=== PATIENT | female | born 1960 | race Caucasian/White ===

== ENCOUNTER 2020-02-09 14:41 | Inpatient (IN) | payer OTHER ==
--- NOTE | 2020-02-09 15:07 | BHS.RME ---
Substance Use & Tx History - Substance Use History Alcohol Substance amount: 3 bottles of wine Frequency of use: Daily Substance route: Oral Date of Last Use: 02/09/20 Physical/Psych/Mental Status - Behavior General Behavior: Increased activity (restlessness, agitation) Eye Contact: Normal - Cooperativeness Cooperativeness: Cooperative - Thinking Thought Processes: Tight Thought content: Future oriented - Physical Health Problems Is patient presently having any pain?: No Does patient presently have any injuries (include location): No Does patient currently have a fever: No CIWA Nausea/Vomitin-Mild Nausea/No Vomiting Muscle Tremors: 3 Anxiety: 4-Mod. Anxious/Guarded Agitation: 0-Normal Activity Paroxysmal Sweats: No Perspiration Orientation: 0-Oriented Tacttile Disturbances: 0-None Auditory Disturbances: 0-None Visual Disturbances: 0-None Headache: 0-None Present CIWA-Ar Total Score: 8
[2020-02-09 18:39] VITALS: BMI 22.3
--- NOTE | 2020-02-09 18:51 | HP ---
CIWA Score Nausea/Vomitin-Mild Nausea/No Vomiting Muscle Tremors: 6 Anxiety: 4-Mod. Anxious/Guarded Agitation: 3 Paroxysmal Sweats: 3 (Increased facial moisture) Orientation: 0-Oriented Tacttile Disturbances: 0-None Auditory Disturbances: 0-None Visual Disturbances: 0-None Headache: 0-None Present CIWA-Ar Total Score: 17 - Admission Criteria OASAS Guidelines: Admission for Medically Managed Detox: Requires at least one of the followin. CIWA greater than 12 2. Seizures within the past 24 hours 3. Delirium tremens within the past 24 hours 4. Hallucinations within the past 24 hours 5. Acute intervention needed for co occurring medical disorder 6. Acute intervention needed for co occurring psychiatric disorder 7. Severe withdrawal that cannot be handled at a lower level of care (continued vomiting, continued diarrhea, abnormal vital signs) requiring intravenous medication and/or fluids 8. Patient presents the following: CIWA greater than 12, Acute intervention needed for co-occurring med or psych disorder (DAMIR 0.232 to 0.140) Admission Criteria Met: Admission criteria met Admission ROS [facility] - [facility] Chief Complaint: "Here because my drinking is out of control. The long-term where I reside asked me to come in for detox" Allergies/Adverse Reactions: Allergies Allergy/AdvReac Type Severity Reaction Status Date / Time No Known Allergies Allergy Verified 02/09/20 19:45 History of Present Illness: 59 yo f w/ alcohol intoxication and withdrawal symptoms seeking detox. DAMIR: 0.232 to 0.140 UTox: Neg Denies seizures or overdoses. Hx: Blackouts Abnormal EKG on admission. Denies hx chest pain or LA. Will order troponin level in a.m. Alcohol use began at age 6 then stopped and restarted at age 46. Currently drinks 3 bottles wine/day. Denies drugs or nicotine use. PMHx: Denies MHHx: Depression. Denies thoughts of harming self or others. Sees a Psychiatrist. Not taking any meds SHx: Longterm. Unemployed. Denies legal issues. Search Terms: NAVI NICOLAS, 1960 Search Date: 02/09/2020 18:48:58 PM The Drug Utilization Report below displays all of the controlled substance prescriptions, if any, that your patient has filled in the last twelve months. The information displayed on this report is compiled from pharmacy submissions to the Department, and accurately reflects the information as submitted by the pharmacies. This report was requested by: Miriamguille Abraham | Reference #: [id number] There are no results for the search terms that you entered. Exam Limitations: No Limitations - Ebola screening Have you traveled outside of the country in the last 21 days: No (Denies COVID. ) Have you had contact with anyone from an Ebola affected area: No Have you been sick,other than usual withdrawal symptoms: No Do you have a fever: No - Review of Systems Constitutional: Diaphoresis, Weight Stable EENT: reports: Blurred Vision Respiratory: reports: No Symptoms reported Cardiac: reports: No Symptoms Reported GI: reports: Nausea, Vomiting : reports: No Symptoms Reported Musculoskeletal: reports: No Symptoms Reported Integumentary: reports: Rash Neuro: reports: Tremors Endocrine: reports: Increased Thirst Hematology: reports: No Symptoms Reported Psychiatric: reports: Mood/Affect Appropiate, Orientated x3, Agitated, Anxious, Depressed (Denies thoughts of harming self or others.) Patient History - PPD History Previous Implant?: Yes Documented Results: Negative w/o proof Implanted On Prior R Admission?: Yes PPD to be Administered?: Yes - Reproductive History Patient is a Female of Child Bearing Age (11 -55 yrs old): No - Smoking Cessation Smoking history: Never smoked Have you smoked in the past 12 months: No Hx Chewing Tobacco Use: No Initiated information on smoking cessation: No - Substance & Tx. History Hx Alcohol Use: Yes Hx Substance Use: No Substance Use Type: Alcohol Hx Substance Use Treatment: Yes (detox, rehab) - Substances abused Alcohol Substance route: Oral Frequency: Daily Amount used: 3 to 4 bottles of wine Age of first use: 6 Date of last use: 02/09/20 Admission Physical Exam BHS - Vital Signs Vital Signs: Vital Signs - 24 hr 02/09/20 18:35 Temperature 98.5 F Pulse Rate 84 Respiratory 18 Rate Blood Pressure 116/88 - Physical General Appearance: Yes: Alcohol on Breath, Intoxicated, Tremorous (Gross tremors), Sweating (Increased facial moisture), Anxious HEENTM: Yes: EOMI, Hearing grossly Normal, Normocephalic, Normal Voice, DESHAUN, Pharynx Normal Respiratory: Yes: Lungs Clear, Normal Breath Sounds, No Respiratory Distress Neck: Yes: No masses,lesions,Nodules, Supple Breast: Yes: Breast Exam Deferred Cardiology: Yes: Regular Rhythm, Regular Rate (HR: 92), S1, S2 Abdominal: Yes: Non Tender, Flat, Soft, Increased Bowel Sounds Genitourinary: Yes: Within Normal Limits Back: Yes: Normal Inspection Musculoskeletal: Yes: full range of Motion, Gait Steady Extremities: Yes: Normal Capillary Refill, Tremors (Gross tremors), Pedal Edema (Pedal pulses +) 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, Fully Oriented, Alert, Motor Strength 5/5, Normal Mood/Affect, Normal Response Integumentary: Yes: Normal Color, Warm, Moist (Increased facial moisture), Rash (flat reddish rash arms and chest), Other (decreased skin turgor,) - Diagnostic (1) Alcohol dependence with uncomplicated withdrawal Current Visit: Yes Status: Acute (2) Alcohol intoxication Current Visit: Yes Status: Acute Qualifiers: Complication of substance-induced condition: uncomplicated Qualified Code(s): F10.920 - Alcohol use, unspecified with intoxication, uncomplicated (3) Rash and nonspecific skin eruption Current Visit: Yes Status: Chronic Comment: Chest and arms (4) Dehydration symptoms Current Visit: Yes Status: Acute (5) Abnormal finding on EKG Current Visit: Yes Status: Acute Cleared for Admission S - Detox or Rehab [facility] Level of Care: Medically Managed Detox Regimen/Protocol: Librium Claeared for Rehab Admission: No Breathalyzer - Breathalyzer Breathalyzer: 0.232 Urine Drug Screen - Test Device Lot number: [id number] Expiration date: 01/08/22 - Control Is test valid?: Yes - Results Drug screen NEGATIVE: Yes Inpatient Rehab Admission - Rehab Decision to Admit Inpatient rehab admission?: No
[2020-02-09] MEDS ORDERED: chlordiazePOXIDE HCL 25 MG CAPSULE PO PRN (19:12)
[2020-02-09] MEDS ORDERED: BISMUTH SUBSALICYLATE 524 MG/30 ML UD PO PRN (19:12)
[2020-02-09] MEDS ORDERED: MAG HYDROX/AL HYDROX/SIMETH 30 ML UNIT-DOSE CUP PO PRN (19:12)
[2020-02-09] MEDS ORDERED: ACETAMINOPHEN 325 MG TABLET (FP) PO PRN ×2 (19:12)
[2020-02-09] MEDS ORDERED: hydrOXYzine PAMOATE 25 MG CAPSULE (FP) PO PRN (19:12)
[2020-02-09] MEDS ORDERED: MENTHOL/PHENOL 1 EACH UD MM PRN (19:12)
[2020-02-09] MEDS ORDERED: MAGNESIUM HYDROX 2400MG/30ML ORAL SUSPENSION 30 ML CUP PO PRN (19:12)
[2020-02-09] MEDS ORDERED: IBUPROFEN 400 MG TABLET (FP) PO PRN (19:12)
[2020-02-09] MEDS ORDERED: MAGNESIUM CITRATE 300 ML BOTTLE PO PRN (19:12)
[2020-02-09] MEDS ORDERED: chlordiazePOXIDE HCL 25 MG CAPSULE ONE (19:37)
[2020-02-09] MEDS ORDERED: COLLOIDAL OATMEAL 1 BAR EACH TP PRN (19:44)
[2020-02-09] MEDS ORDERED: chlordiazePOXIDE HCL 25 MG CAPSULE PO ONE (19:45)
[2020-02-09] MEDS ORDERED: ONDANSETRON *ODT* 4 MG TABLET SL ONE (19:45)
[2020-02-09] MEDS: chlordiazePOXIDE HCL 25 MG CAPSULE PO SCH (22:28)
[2020-02-09] MEDS: CLOTRIMAZOLE 1%TOPICAL SOLUTION 30 ML BOTTLE TP SCH (22:28)
[2020-02-09] MEDS: THIAMINE HCL 100 MG TABLET (FP) PO SCH (22:29)
[2020-02-09] MEDS: MELATONIN 5 MG TABLETS PO SCH (22:29)
[2020-02-10] MEDS: chlordiazePOXIDE HCL 25 MG CAPSULE PO SCH ×2 (05:43→10:28)
[2020-02-10 10:17] LABS: HEMATOCRIT 35.8 % (32.4-45.2); HEMOGLOBIN 12.5 GM/dL (10.7-15.3); MCH 39.5 pg (25.7-33.7); MCHC 34.9 g/dl (32.0-36.0); MEAN PLT VOLUME 7.9 fl (7.5-11.1); PLATELET COUNT 57 K/MM3 (134-434); RBC 3.17 M/mm3 (3.60-5.2); WHITE BLOOD COUNT 3.6 K/mm3 (4.0-10.0)
[2020-02-10 10:27] LABS: ALBUMIN 3.6 g/dl (3.4-5.0); ANION GAP 8 MMOL/L (8-16); BILIRUBIN,TOTAL 2.4 mg/dL (0.2-1); BLOOD UREA NITROGEN 13.4 mg/dL (7-18); CALCIUM 8.3 mg/dL (8.5-10.1); CHLORIDE 95 mmol/L (98-107); CO2 33 mmol/L (21-32); CREATININE 0.8 mg/dL (0.55-1.3); POTASSIUM 3.8 mmol/L (3.5-5.1); SGPT/ALT 139 U/L (13-61); SODIUM 137 mmol/L (136-145)
--- NOTE | 2020-02-10 10:27 | PN ---
S CIWA - CIWA Score Nausea/Vomitin-No Nausea/No Vomiting Muscle Tremors: 2 Anxiety: 3 Agitation: 0-Normal Activity Paroxysmal Sweats: 3 Orientation: 0-Oriented Tacttile Disturbances: 0-None Auditory Disturbances: 0-None Visual Disturbances: 0-None Headache: 2-Mild CIWA-Ar Total Score: 10 S Progress Note (SOAP) Subjective: c/o sweats, shakes, anxiety, and headache. Objective: 02/10/20 10:26 Vital Signs 02/10/20 02/10/20 06:36 08:52 Temperature 97.2 F L 96.8 F L Pulse Rate 80 86 Respiratory 18 18 Rate Blood Pressure 129/89 109/74 O2 Sat by Pulse 99 99 Oximetry (%) Laboratory Last Values WBC 3.6 K/mm3 (4.0-10.0) L 02/10/20 07:25 RBC 3.17 M/mm3 (3.60-5.2) L 02/10/20 07:25 Hgb 12.5 GM/dL (10.7-15.3) 02/10/20 07:25 Hct 35.8 % (32.4-45.2) 02/10/20 07:25 MCV 113.0 fl (80-96) H 02/10/20 07:25 MCH 39.5 pg (25.7-33.7) H 02/10/20 07:25 MCHC 34.9 g/dl (32.0-36.0) 02/10/20 07:25 RDW 16.0 % (11.6-15.6) H 02/10/20 07:25 Plt Count 57 K/MM3 (134-434) L 02/10/20 07:25 MPV 7.9 fl (7.5-11.1) 02/10/20 07:25 Sodium 137 mmol/L (136-145) 02/10/20 07:25 Potassium 3.8 mmol/L (3.5-5.1) 02/10/20 07:25 Chloride 95 mmol/L (98-107) L 02/10/20 07:25 Carbon Dioxide 33 mmol/L (21-32) H 02/10/20 07:25 Anion Gap 8 MMOL/L (8-16) 02/10/20 07:25 BUN 13.4 mg/dL (7-18) 02/10/20 07:25 Creatinine 0.8 mg/dL (0.55-1.3) 02/10/20 07:25 Est GFR (CKD-EPI)AfAm 94.19 02/10/20 07:25 Est GFR (CKD-EPI)NonAf 81.27 02/10/20 07:25 Random Glucose 93 mg/dL (74-106) 02/10/20 07:25 Calcium 8.3 mg/dL (8.5-10.1) L 02/10/20 07:25 Total Bilirubin 2.4 mg/dL (0.2-1) H 02/10/20 07:25 AST 268 U/L (15-37) H 02/10/20 07:25 ALT 139 U/L (13-61) H 02/10/20 07:25 Alkaline Phosphatase 54 U/L (45-117) 02/10/20 07:25 Troponin I < 0.02 ng/ml (0.00-0.05) 02/10/20 07:25 Troponin I Cancelled 02/10/20 07:25 Total Protein 6.4 g/dl (6.4-8.2) 02/10/20 07:25 Albumin 3.6 g/dl (3.4-5.0) 02/10/20 07:25 Syphilis Serology Non-reactive (NONREACTIVE) 02/10/20 07:25 Labs noted with elevated ALT/AST 02/10/20 14:22 Assessment: 02/10/20 10:27 AOX3, in no acute respiratory distress. Full ROM, ambulating in the unit. Withdrawal symptoms. Elevated liver enzymes. 02/10/20 10:29 Plan: Change librium protocol to ativan protocol.
[2020-02-10] MEDS: PRENATAL VITAMINS W/ FOLIC ACID TABLET (FP) PO SCH (10:28)
[2020-02-10] MEDS ORDERED: LORazepam 1 MG TABLET PO PRN (10:31)
[2020-02-10 10:33] LABS: ALK PHOS 54 U/L (45-117); GLUCOSE,RANDOM 93 mg/dL (74-106); SGOT/AST 268 U/L (15-37); TOT PROT 6.4 g/dl (6.4-8.2)
[2020-02-10] MEDS ORDERED: LORazepam 2 MG TABLET PO PRN (11:00)
--- NOTE | 2020-02-10 15:00 | EKG ---
Test Reason : Blood Pressure : / mmHG Vent. Rate : 073 BPM Atrial Rate : 073 BPM P-R Int : 142 ms QRS Dur : 072 ms QT Int : 420 ms P-R-T Axes : 043 -12 031 degrees QTc Int : 462 ms NORMAL SINUS RHYTHM POSSIBLE ANTEROLATERAL INFARCT , AGE UNDETERMINED ABNORMAL ECG NO PREVIOUS ECGS AVAILABLE Confirmed by Polo Kay ([id number]) on 02/10/2020 3:00:03 PM Referred By: Confirmed By:Polo Kay
[2020-02-10] MEDS: CLOTRIMAZOLE 1%TOPICAL SOLUTION 30 ML BOTTLE TP SCH (15:31)
[2020-02-10 17:30] LABS: EPI CELLS 6 /uL (0-25.1); HYALINE CASTS 7 /uL (0-3.1); PH,URINE 6.5 (5.0-8.0); URINE APPEARANCE CLEAR; URINE BILIRUBIN 1+ (NEGATIVE); URINE COLOR ORANGE; URINE GLUCOSE (UA) NEGATIVE (NEGATIVE); URINE KETONE 1+ (NEGATIVE); URINE LEUK ESTERASE 1+ (NEGATIVE); URINE NITRITE POSITIVE (NEGATIVE); URINE PROTEIN 2+ (NEGATIVE); URINE RBC 10 /uL (0-23.9); URINE WBC 212 /uL (0-25.8)
[2020-02-10 20:05] LABS: URINE BACTERIA 198.8 /uL (0-1359)
[2020-02-10] MEDS: MELATONIN 5 MG TABLETS PO SCH (22:33)
[2020-02-10] MEDS: CLOTRIMAZOLE 1% CREAM 15 GM TUBE TP SCH (22:33)
[2020-02-10] MEDS: THIAMINE HCL 100 MG TABLET (FP) PO SCH (22:33)
[2020-02-11] MEDS ORDERED: chlordiazePOXIDE HCL 25 MG CAPSULE PO SCH (05:00)
[2020-02-11] MEDS: LORazepam 1 MG TABLET PO SCH ×4 (05:44→22:04)
[2020-02-11] MEDS: CLOTRIMAZOLE 1% CREAM 15 GM TUBE TP SCH ×2 (10:24→22:05)
[2020-02-11] MEDS: PRENATAL VITAMINS W/ FOLIC ACID TABLET (FP) PO SCH (10:24)
--- NOTE | 2020-02-11 13:54 | PN ---
S CIWA - CIWA Score Nausea/Vomitin-Mild Nausea/No Vomiting Muscle Tremors: 1-None Visible, but [place] Anxiety: 1-Mildly Anxious Agitation: 0-Normal Activity Paroxysmal Sweats: 1-Minimal Palms Moist Orientation: 0-Oriented Tacttile Disturbances: 0-None Auditory Disturbances: 0-None Visual Disturbances: 2-Mild Sensitivity Headache: 1-Very Mild CIWA-Ar Total Score: 7 BHS Progress Note (SOAP) Subjective: 59 years old female was admitted on 02/09/20 for alcohol withdrawal sx management treating with ativan detox regiment bmi 22.3 ensure 120 ml po tid with meals resting in bed comfortably Objective: 02/11/20 13:56 Vital Signs - 24 hr 02/10/20 02/10/20 02/11/20 16:31 20:40 06:25 Temperature 97.3 F L 97.3 F L 98 F Pulse Rate 89 89 63 Respiratory 18 16 16 Rate Blood Pressure 142/100 136/89 133/91 O2 Sat by Pulse 99 100 98 Oximetry (%) 02/11/20 02/11/20 08:51 12:55 Temperature 96.5 F L 97.3 F L Pulse Rate 82 100 H Respiratory 16 16 Rate Blood Pressure 107/69 112/84 O2 Sat by Pulse 98 98 Oximetry (%) Laboratory Tests 02/09/20 02/10/20 02/10/20 20:00 07:25 07:25 WBC 3.6 L RBC 3.17 L Hgb 12.5 Hct 35.8 MCV 113.0 H MCH 39.5 H MCHC 34.9 RDW 16.0 H Plt Count 57 L MPV 7.9 Sodium Potassium Chloride Carbon Dioxide Anion Gap BUN Creatinine Est GFR (CKD-EPI)AfAm Est GFR (CKD-EPI)NonAf Random Glucose Calcium Total Bilirubin AST ALT Alkaline Phosphatase Troponin I Total Protein Albumin Urine Color Urine Appearance Urine pH Ur Specific [place] Urine Protein Urine Glucose (UA) Urine Ketones Urine Blood Urine Nitrite Urine Bilirubin Urine Urobilinogen Ur Leukocyte Esterase Urine WBC (Auto) Urine RBC (Auto) Urine Casts (Auto) U Epithel Cells (Auto) Urine Bacteria (Auto) Syphilis Serology Non-reactive COVID-19 (SILVINA) Not detected 02/10/20 02/10/20 02/10/20 07:25 07:25 12:05 WBC RBC Hgb Hct MCV MCH MCHC RDW Plt Count MPV Sodium 137 Potassium 3.8 Chloride 95 L Carbon Dioxide 33 H Anion Gap 8 BUN 13.4 Creatinine 0.8 Est GFR (CKD-EPI)AfAm 94.19 Est GFR (CKD-EPI)NonAf 81.27 Random Glucose 93 Calcium 8.3 L Total Bilirubin 2.4 H AST 268 H ALT 139 H Alkaline Phosphatase 54 Troponin I < 0.02 Cancelled Total Protein 6.4 Albumin 3.6 Urine Color [place] Urine Appearance Clear Urine pH 6.5 Ur Specific [place] 1.023 Urine Protein 2+ H Urine Glucose (UA) Negative Urine Ketones 1+ H Urine Blood Negative Urine Nitrite Positive H Urine Bilirubin 1+ H Urine Urobilinogen 2.0 H Ur Leukocyte Esterase 1+ H Urine WBC (Auto) 212 Urine RBC (Auto) 10 Urine Casts (Auto) 7 U Epithel Cells (Auto) 6 Urine Bacteria (Auto) 198.8 Syphilis Serology COVID-19 (SILVINA) ast elevation uti bactrim ds bid x 5 days 02/11/20 13:58 Assessment: 02/11/20 13:59 alcohol withdrawal ast elevation uti Plan: ativan regiment repeat ast bactrim ds bid x 5 days
[2020-02-11] MEDS: SULFAMETHOXAZOLE/TRIMETHOPRIM 800MG/160MG D.S. TABLET PO SCH ×2 (16:00→22:04)
[2020-02-11] MEDS: MELATONIN 5 MG TABLETS PO SCH (22:04)
[2020-02-11] MEDS: THIAMINE HCL 100 MG TABLET (FP) PO SCH (22:04)
[2020-02-12] MEDS ORDERED: chlordiazePOXIDE HCL 10 MG CAPSULE PO PRN
[2020-02-12] MEDS ORDERED: chlordiazePOXIDE HCL 10 MG CAPSULE PO SCH (05:00)
[2020-02-12] MEDS: LORazepam 0.5 MG TABLET PO SCH ×4 (06:08→22:27)
[2020-02-12 10:14] LABS: SGOT/AST 86 U/L (15-37); SGPT/ALT 88 U/L (13-61)
[2020-02-12] MEDS: SULFAMETHOXAZOLE/TRIMETHOPRIM 800MG/160MG D.S. TABLET PO SCH ×2 (10:26→22:27)
[2020-02-12] MEDS: PRENATAL VITAMINS W/ FOLIC ACID TABLET (FP) PO SCH (10:26)
[2020-02-12] MEDS: CLOTRIMAZOLE 1% CREAM 15 GM TUBE TP SCH ×2 (10:26→22:27)
--- NOTE | 2020-02-12 11:14 | PN ---
S CIWA - CIWA Score Nausea/Vomitin-No Nausea/No Vomiting Muscle Tremors: 1-None Visible, but [place] Anxiety: 2 Agitation: 0-Normal Activity Paroxysmal Sweats: No Perspiration Orientation: 0-Oriented Tacttile Disturbances: 0-None Auditory Disturbances: 0-None Visual Disturbances: 1-Very Mild Sensitivity Headache: 1-Very Mild CIWA-Ar Total Score: 5 BHS Progress Note (SOAP) Subjective: 59 years old female was admitted on 02/09/20 for alcohol withdrawal sx management treating with ativan regiment feels better tolerated food well encourage mr vance continue mental health services as well as alcohol abuse treatment Objective: 02/12/20 11:18 Vital Signs - 24 hr 02/11/20 02/11/20 02/11/20 12:55 16:31 20:29 Temperature 97.3 F L 97.1 F L 97.3 F L Pulse Rate 100 H 84 86 Respiratory 16 16 16 Rate Blood Pressure 112/84 145/97 130/95 O2 Sat by Pulse 98 100 Oximetry (%) 02/12/20 02/12/20 06:56 09:19 Temperature 96.6 F L 97.5 F L Pulse Rate 82 77 Respiratory 18 18 Rate Blood Pressure 127/87 127/85 O2 Sat by Pulse 99 Oximetry (%) Laboratory Tests 02/09/20 02/10/20 02/10/20 20:00 07:25 07:25 WBC 3.6 L RBC 3.17 L Hgb 12.5 Hct 35.8 MCV 113.0 H MCH 39.5 H MCHC 34.9 RDW 16.0 H Plt Count 57 L MPV 7.9 Sodium Potassium Chloride Carbon Dioxide Anion Gap BUN Creatinine Est GFR (CKD-EPI)AfAm Est GFR (CKD-EPI)NonAf Random Glucose Calcium Total Bilirubin AST ALT Alkaline Phosphatase Troponin I Total Protein Albumin Urine Color Urine Appearance Urine pH Ur Specific [place] Urine Protein Urine Glucose (UA) Urine Ketones Urine Blood Urine Nitrite Urine Bilirubin Urine Urobilinogen Ur Leukocyte Esterase Urine WBC (Auto) Urine RBC (Auto) Urine Casts (Auto) U Epithel Cells (Auto) Urine Bacteria (Auto) Syphilis Serology Non-reactive COVID-19 (SILVINA) Not detected 02/10/20 02/10/20 02/10/20 07:25 07:25 12:05 WBC RBC Hgb Hct MCV MCH MCHC RDW Plt Count MPV Sodium 137 Potassium 3.8 Chloride 95 L Carbon Dioxide 33 H Anion Gap 8 BUN 13.4 Creatinine 0.8 Est GFR (CKD-EPI)AfAm 94.19 Est GFR (CKD-EPI)NonAf 81.27 Random Glucose 93 Calcium 8.3 L Total Bilirubin 2.4 H AST 268 H ALT 139 H Alkaline Phosphatase 54 Troponin I < 0.02 Cancelled Total Protein 6.4 Albumin 3.6 Urine Color [place] Urine Appearance Clear Urine pH 6.5 Ur Specific [place] 1.023 Urine Protein 2+ H Urine Glucose (UA) Negative Urine Ketones 1+ H Urine Blood Negative Urine Nitrite Positive H Urine Bilirubin 1+ H Urine Urobilinogen 2.0 H Ur Leukocyte Esterase 1+ H Urine WBC (Auto) 212 Urine RBC (Auto) 10 Urine Casts (Auto) 7 U Epithel Cells (Auto) 6 Urine Bacteria (Auto) 198.8 Syphilis Serology COVID-19 (SILVINA) 02/12/20 07:40 WBC RBC Hgb Hct MCV MCH MCHC RDW Plt Count MPV Sodium Potassium Chloride Carbon Dioxide Anion Gap BUN Creatinine Est GFR (CKD-EPI)AfAm Est GFR (CKD-EPI)NonAf Random Glucose Calcium Total Bilirubin AST 86 H ALT 88 H Alkaline Phosphatase Troponin I Total Protein Albumin Urine Color Urine Appearance Urine pH Ur Specific [place] Urine Protein Urine Glucose (UA) Urine Ketones Urine Blood Urine Nitrite Urine Bilirubin Urine Urobilinogen Ur Leukocyte Esterase Urine WBC (Auto) Urine RBC (Auto) Urine Casts (Auto) U Epithel Cells (Auto) Urine Bacteria (Auto) Syphilis Serology COVID-19 (SILVINA) 02/12/20 11:18 ast reduction 02/12/20 11:19 uti continue bactrim ds Assessment: 02/12/20 11:20 alcohol withdrawal Plan: ativan regiment
[2020-02-12] MEDS: MELATONIN 5 MG TABLETS PO SCH (22:27)
[2020-02-12] MEDS: THIAMINE HCL 100 MG TABLET (FP) PO SCH (22:27)
[2020-02-13] MEDS ORDERED: LORazepam 0.5 MG TABLET PO PRN
[2020-02-13] MEDS ORDERED: chlordiazePOXIDE HCL 10 MG CAPSULE PO SCH (05:00)
[2020-02-13] MEDS ORDERED: LORazepam 0.5 MG TABLET PO ONE (05:00)
[2020-02-13 09:16] VITALS: BP 125/88; PULSE 79; TEMP 97.5
--- NOTE | 2020-02-13 10:24 | DS ---
[facility] Detox Discharge Summary Admission Date: 02/09/20 Discharge Date: 02/13/20 - History Present History: Alcohol Dependence Additional Comments: 59 years old female was admitted on 02/09/20 for alcohol withdrawal sx management treated with ativan detox regiment ms vance has completed the ativan regiment and is tolerated well General Appearance: Yes: mild Tremorous, no Sweating, less Anxious HEENTM: Yes: EOMI, Hearing grossly Normal, Normocephalic, Normal Voice, DESHAUN, Pharynx Normal Respiratory: Yes: Lungs Clear, Normal Breath Sounds, No Respiratory Distress Neck: Yes: No masses,lesions,Nodules, Supple Breast: Yes: Breast Exam Deferred Cardiology: Yes: Regular Rhythm, Regular Rate (HR: 92), S1, S2 Abdominal: Yes: Non Tender, Flat, Soft, Increased Bowel Sounds Genitourinary: Yes: Within Normal Limits Back: Yes: Normal Inspection Musculoskeletal: Yes: full range of Motion, Gait Steady Extremities: Yes: Normal Capillary Refill, mild Tremors, mild Pedal Edema (Pedal pulses +)"getting better today" 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, Fully Oriented, Alert, Motor Strength 5/5, Normal Mood/Affect, Normal Response Integumentary: Yes: Normal Color, Warm, chronic Rash (flat reddish rash arms and chest), Other (good skin turgor,) Pertinent Past History: time for discharge 35 minutes ms vance states that a psychiatrist and correctional case records supervisor in the senior living are supportive to her alcohol treatment ms vance determines to maintain sober through "I am looking for psychosocial therapist, someone I can talk to" - Physical Exam Results Vital Signs: Vital Signs Temperature 97.5 F L 02/13/20 08:52 Pulse Rate 79 02/13/20 08:52 Respiratory Rate 16 02/13/20 08:52 Blood Pressure 125/88 02/13/20 08:52 O2 Sat by Pulse Oximetry (%) 97 02/13/20 05:46 Pertinent Admission Physical Exam Findings: alcohol withdrawal Laboratory Tests 02/09/20 02/10/20 02/10/20 20:00 07:25 07:25 WBC 3.6 L RBC 3.17 L Hgb 12.5 Hct 35.8 MCV 113.0 H MCH 39.5 H MCHC 34.9 RDW 16.0 H Plt Count 57 L MPV 7.9 Sodium Potassium Chloride Carbon Dioxide Anion Gap BUN Creatinine Est GFR (CKD-EPI)AfAm Est GFR (CKD-EPI)NonAf Random Glucose Calcium Total Bilirubin AST ALT Alkaline Phosphatase Troponin I Total Protein Albumin Urine Color Urine Appearance Urine pH Ur Specific [place] Urine Protein Urine Glucose (UA) Urine Ketones Urine Blood Urine Nitrite Urine Bilirubin Urine Urobilinogen Ur Leukocyte Esterase Urine WBC (Auto) Urine RBC (Auto) Urine Casts (Auto) U Epithel Cells (Auto) Urine Bacteria (Auto) Syphilis Serology Non-reactive COVID-19 (SILVINA) Not detected 02/10/20 02/10/20 02/10/20 07:25 07:25 12:05 WBC RBC Hgb Hct MCV MCH MCHC RDW Plt Count MPV Sodium 137 Potassium 3.8 Chloride 95 L Carbon Dioxide 33 H Anion Gap 8 BUN 13.4 Creatinine 0.8 Est GFR (CKD-EPI)AfAm 94.19 Est GFR (CKD-EPI)NonAf 81.27 Random Glucose 93 Calcium 8.3 L Total Bilirubin 2.4 H AST 268 H ALT 139 H Alkaline Phosphatase 54 Troponin I < 0.02 Cancelled Total Protein 6.4 Albumin 3.6 Urine Color [place] Urine Appearance Clear Urine pH 6.5 Ur Specific [place] 1.023 Urine Protein 2+ H Urine Glucose (UA) Negative Urine Ketones 1+ H Urine Blood Negative Urine Nitrite Positive H Urine Bilirubin 1+ H Urine Urobilinogen 2.0 H Ur Leukocyte Esterase 1+ H Urine WBC (Auto) 212 Urine RBC (Auto) 10 Urine Casts (Auto) 7 U Epithel Cells (Auto) 6 Urine Bacteria (Auto) 198.8 Syphilis Serology COVID-19 (SILVINA) 02/12/20 07:40 WBC RBC Hgb Hct MCV MCH MCHC RDW Plt Count MPV Sodium Potassium Chloride Carbon Dioxide Anion Gap BUN Creatinine Est GFR (CKD-EPI)AfAm Est GFR (CKD-EPI)NonAf Random Glucose Calcium Total Bilirubin AST 86 H ALT 88 H Alkaline Phosphatase Troponin I Total Protein Albumin Urine Color Urine Appearance Urine pH Ur Specific [place] Urine Protein Urine Glucose (UA) Urine Ketones Urine Blood Urine Nitrite Urine Bilirubin Urine Urobilinogen Ur Leukocyte Esterase Urine WBC (Auto) Urine RBC (Auto) Urine Casts (Auto) U Epithel Cells (Auto) Urine Bacteria (Auto) Syphilis Serology COVID-19 (SILVINA) uti uncomplicated 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 - Treatment Hospital Course: Detox Protocol Followed, Detoxed Safely, Responded well, Discharged Condition Good, Rehab Referral Accepted Patient has Accepted a Rehab Referral to: [facility] - Medication Discharge Medications: Ambulatory Orders Sulfamethoxazole/Trimethoprim [Bactrim DS -] 1 each PO BID #10 tablet 02/13/20 - Diagnosis (1) Chronic dermatitis Current Visit: Yes Status: Chronic (2) Substance induced mood disorder Current Visit: Yes Status: Suspected (3) Alcohol dependence with uncomplicated withdrawal Current Visit: Yes Status: Acute - AMA Did Patient Leave Against Medical Advice: No CIWA Score - CIWA Score Nausea/Vomitin-No Nausea/No Vomiting Muscle Tremors: 1-None Visible, but [place] Anxiety: 1-Mildly Anxious Agitation: 0-Normal Activity Paroxysmal Sweats: No Perspiration Orientation: 0-Oriented Tacttile Disturbances: 0-None Auditory Disturbances: 0-None Visual Disturbances: 0-None Headache: 0-None Present CIWA-Ar Total Score: 2
[2020-02-13] MEDS: SULFAMETHOXAZOLE/TRIMETHOPRIM 800MG/160MG D.S. TABLET PO SCH (10:28)
[2020-02-13] MEDS: PRENATAL VITAMINS W/ FOLIC ACID TABLET (FP) PO SCH (10:28)
[2020-02-13] MEDS: CLOTRIMAZOLE 1% CREAM 15 GM TUBE TP SCH (10:29)
[2020-02-14] MEDS ORDERED: chlordiazePOXIDE HCL 10 MG CAPSULE PO ONE (05:00)
== END 2020-02-13 10:42 | disposition home or self-care (01) | DRG 775 ==
LOC: YASAS 14:41 → Y3N 18:56
PROVIDERS: ADMIT Allergy & Immunology; ATTEND Allergy & Immunology
PROC: HZ2ZZZZ Detoxification Services for Substance Abuse Treatment (ICD-10-PCS; principal; 2020-02-09)
DX: F10.230 Alcohol dependence with withdrawal, uncomplicated (principal); F19.24 Other psychoactive substance dependence with psychoactive substance-induced mood disorder; F10.220 Alcohol dependence with intoxication, uncomplicated; N39.0 Urinary tract infection, site not specified; L30.9 Dermatitis, unspecified; R74.0 Nonspecific elevation of levels of transaminase and lactic acid dehydrogenase [LDH]; R94.31 Abnormal electrocardiogram [ECG] [EKG]; R63.8 Other symptoms and signs concerning food and fluid intake; Z56.0 Unemployment, unspecified; Z59.0 Homelessness
CPT/HCPCS: 36415; 80053; 81003; 84450; 84460; 84484; 85027; 86780; 93005; 93010; Q0162; U0003